=== PATIENT | female | born 1975 | race Caucasian/White ===

== ENCOUNTER → 2020-04-18 | Outpatient (REF) | LOC: M LAB 14:23 | PROVIDERS: ATTEND Nurse Practitioner Adult Health | DX: Z02.89 Encounter for other administrative examinations (principal) ==

== ENCOUNTER 2020-06-06 13:45 | Emergency (ER) | payer MEDICAID, SELFPAY ==
[~2020-06-06] VITALS: Ht 154.9 cm; Wt 103.6 kg
[2020-06-06] MEDS ORDERED: LEVO200T4 PO (13:55)
[2020-06-06] MEDS ORDERED: WELL100T2 PO (13:55)
[2020-06-06] MEDS ORDERED: ATOR40TA75 PO ×2 (13:55→19:03)
[2020-06-06] MEDS ORDERED: PANT40TA29 PO ×2 (13:55→19:03)
[2020-06-06] MEDS ORDERED: ZOLO100T PO (13:55)
[2020-06-06] MEDS ORDERED: NORCO, ANEXSIA 5/325MG TABLET (HYDROcodone/ACETAMINOPHEN) PO ONE (14:20)
[2020-06-06 14:50] LABS: BASO # 0.1 10^3/uL (0.0-0.2); BASO % 1.1 % (0.0-1.0); EOS # 0.3 10^3/uL (0.0-0.5); EOS % 3.2 % (0.0-3.0); HEMATOCRIT 37.1 % (36.0-47.0); HEMOGLOBIN 11.7 g/dl (12.0-15.5); LYMPH % 23.4 % (24.0-44.0); MEAN CORPUSCULAR HEMOGLOBIN 27.2 pg (27.0-33.0); MEAN CORPUSCULAR HGB CONC 31.5 g/dl (32.0-36.5); MEAN CORPUSCULAR VOLUME 86.3 fl (80.0-96.0); MONO # 0.4 10^3/uL (0.0-0.8); MONO % 4.8 % (2.0-8.0); NEUTROPHILS # 5.7 10^3/uL (1.5-8.5); NEUTROPHILS % 67.3 % (36.0-66.0); PLATELET COUNT, AUTOMATED 320 10^3/uL (150-450); WHITE BLOOD COUNT 8.5 10^3/uL (4.0-10.0)
[2020-06-06 15:30] LABS: ALBUMIN 4.1 GM/DL (3.2-5.2); ALT/SGPT 66 U/L (12-78); BILIRUBIN,TOTAL 0.5 MG/DL (0.2-1.0); BLOOD UREA NITROGEN 13 MG/DL (7-18); CALCIUM LEVEL 9.4 MG/DL (8.5-10.1); CARBON DIOXIDE LEVEL 32 MEQ/L (21-32); CHLORIDE LEVEL 101 MEQ/L (98-107); CK-MB VALUE MASS 16.3 NG/ML (<3.6); CORTISOL BASELINE 10.1 UG/DL (4.3-22.4); CPK CREATINE PHOSPHOKINASE 1933 U/L (26-192); CREATININE FOR GFR 1.48 MG/DL (0.55-1.30); FREE T3 < 0.5 PG/ML (2.2-4.0); FREE T4 0.21 NG/DL (0.76-1.46); GLOMERULAR FILTRATION RATE 40.6 (>58); GLUCOSE, FASTING 111 MG/DL (70-100); LIPASE 120 U/L (73-393); MB/CK RELATIVE INDEX 0.84 (< OR =4); NT-PRO BNP 46 PG/ML (<125); POTASSIUM SERUM 3.5 MEQ/L (3.5-5.1); SODIUM LEVEL 138 MEQ/L (136-145); TOTAL PROTEIN 7.6 GM/DL (6.4-8.2); TROPONIN I < 0.02 NG/ML (< 0.10)
--- NOTE | 2020-06-06 16:04 | REP ---
INDICATION: swelling/?chf. COMPARISON: None. TECHNIQUE: Upright PA and lateral chest. FINDINGS: The lung martin are clear. Cardiac size is normal. The izabel, mediastinum and skeletal structures are unremarkable. IMPRESSION: Essentially negative PA and lateral chest <Electronically signed by Adeel Morgan > 06/06/20 [id number]
[2020-06-06] MEDS ORDERED: NS 1,000 ML IV ONE (16:10)
[2020-06-06] MEDS ORDERED: LEVOTHYROXINE 100MCG TABLET (0.1MG) PO ONE (16:25)
[2020-06-06] MEDS ORDERED: SERT-141 PO (19:03)
[2020-06-06] MEDS ORDERED: BUPR1TAB52 PO (19:03)
[2020-06-06] MEDS ORDERED: LEVO100T5 PO (19:03)
[2020-06-06] MEDS ORDERED: BACT800T5 PO (19:03)
[2020-06-06 19:33] VITALS: BP 198/136
--- NOTE | 2020-06-06 21:14 | ECGEPIP ---
[facility] - ED Test Date: 2020-06-06 Pat Name: PATRICIA FRANCOIS Department: Room: - Gender: Female [employer]: LYSSA : 1975 Requested By: HARRIET CHILEL PA-C Order Number: [id number] Reading MD: Minor Kim Measurements Intervals [place] Rate: 76 P: 32 MD: 158 QRS: -32 QRSD: 82 T: 61 QT: 360 QTc: 405 Interpretive Statements Normal sinus rhythm Left axis deviation Nonspecific T wave abnormality NO PRIORS FOR COMPARISON Electronically Signed on 06-06-2020 21:14:20 EDT by Minor Kim
== END 2020-06-06 19:53 | disposition home or self-care (01) ==
LOC: M ED 13:45
DX: N39.0 Urinary tract infection, site not specified (principal); R00.2 Palpitations; E03.9 Hypothyroidism, unspecified; Z76.0 Encounter for issue of repeat prescription; R03.0 Elevated blood-pressure reading, without diagnosis of hypertension; Z79.899 Other long term (current) drug therapy; Z88.1 Allergy status to other antibiotic agents

== ENCOUNTER 2020-06-29 14:36 | Emergency (ER) | payer MEDICAID ==
[~2020-06-29] VITALS: Ht 154.9 cm; Wt 90.9 kg
[~2020-06-29 14:36] MED LIST: ATOR40TA75 PO; BACT800T5 PO; BUPR1TAB52 PO; LEVO100T5 PO; LEVO200T4 PO; PANT40TA29 PO; SERT-141 PO; WELL100T2 PO; ZOLO100T PO
[2020-06-29] MEDS ORDERED: methocarbamoL 750 MG TAB PO ONE (17:15)
[2020-06-29] MEDS ORDERED: ACETAMINOPHEN 325 MG TAB PO ONE (17:15)
[2020-06-29] MEDS ORDERED: LIDOCAINE 5% (LIDODERM) PATCH TD ONE (17:30)
[2020-06-29 17:51] VITALS: BP 158/70
[2020-06-30] MEDS ORDERED: **NOTE PATIENT COMMENT** MISC XX ONE (05:30)
[2020-07-01] MEDS ORDERED: LIDO5DIS41 TD (15:13)
[2020-07-01] MEDS ORDERED: METH-1164 PO (15:14)
== END 2020-06-29 17:57 | disposition home or self-care (01) ==
LOC: M ED 14:36
DX: G89.29 Other chronic pain (principal); M54.40 Lumbago with sciatica, unspecified side; E03.9 Hypothyroidism, unspecified; F41.9 Anxiety disorder, unspecified; F33.9 Major depressive disorder, recurrent, unspecified; K21.9 Gastro-esophageal reflux disease without esophagitis; I10 Essential (primary) hypertension; E78.5 Hyperlipidemia, unspecified; Z88.1 Allergy status to other antibiotic agents; Z79.890 Hormone replacement therapy; Z79.899 Other long term (current) drug therapy

== ENCOUNTER 2020-08-18 13:11 | Emergency (ER) | payer MEDICAID ==
[~2020-08-18] VITALS: Ht 154.9 cm; Wt 100.6 kg
[~2020-08-18 13:11] MED LIST changes: +LIDO5DIS41 TD; +METH-1164 PO
[2020-08-18 13:13] VITALS: BP 150/98
[2020-08-19] MEDS ORDERED: NEUR100C PO (18:06)
== END 2020-08-18 22:41 | disposition left against medical advice (07) ==
LOC: M ED 13:11
DX: Z53.21 Procedure and treatment not carried out due to patient leaving prior to being seen by health care provider (principal)

== ENCOUNTER 2020-08-19 12:47 | Emergency (ER) | payer MEDICAID, OTHER ==
[~2020-08-19] VITALS: Ht 154.9 cm; Wt 90.9 kg
[2020-08-19] MEDS ORDERED: MORPHINE 2 MG/ML 1ML VIAL (J2270) IV ONE (14:30)
[2020-08-19] MEDS ORDERED: NS 500 ML IV ONE (14:30)
[2020-08-19 14:47] LABS: BASO # 0.1 10^3/uL (0.0-0.2); EOS # 0.2 10^3/uL (0.0-0.5); EOS % 2.6 % (0.0-3.0); HEMATOCRIT 38.1 % (36.0-47.0); HEMOGLOBIN 11.8 g/dl (12.0-15.5); LYMPH % 23.3 % (24.0-44.0); MEAN CORPUSCULAR HEMOGLOBIN 27.8 pg (27.0-33.0); MEAN CORPUSCULAR VOLUME 89.6 fl (80.0-96.0); MONO # 0.4 10^3/uL (0.0-0.8); MONO % 4.7 % (2.0-8.0); NEUTROPHILS # 5.9 10^3/uL (1.5-8.5); NEUTROPHILS % 67.6 % (36.0-66.0); PLATELET COUNT, AUTOMATED 353 10^3/uL (150-450); RED BLOOD COUNT 4.25 10^6/uL (4.00-5.40); WHITE BLOOD COUNT 8.7 10^3/uL (4.0-10.0)
[2020-08-19 15:18] LABS: ALBUMIN 3.7 GM/DL (3.2-5.2); ALT/SGPT 47 U/L (12-78); BILIRUBIN,DIRECT < 0.1 MG/DL (0.0-0.2); BILIRUBIN,TOTAL 0.5 MG/DL (0.2-1.0); BLOOD UREA NITROGEN 10 MG/DL (7-18); CALCIUM LEVEL 8.5 MG/DL (8.5-10.1); CARBON DIOXIDE LEVEL 33 MEQ/L (21-32); CHLORIDE LEVEL 104 MEQ/L (98-107); GLOMERULAR FILTRATION RATE 51.7 (>58); GLUCOSE, FASTING 75 MG/DL (70-100); LIPASE 148 U/L (73-393); POTASSIUM SERUM 3.5 MEQ/L (3.5-5.1); SODIUM LEVEL 139 MEQ/L (136-145); TOTAL PROTEIN 7.6 GM/DL (6.4-8.2)
--- NOTE | 2020-08-19 15:18 | REP ---
INDICATION: back pain, right sided, urinary symptoms. COMPARISON: None. TECHNIQUE: Noncontrast enhanced stone protocol technique FINDINGS: The lung bases are clear. Limited evaluation of the solid intra-abdominal organs show no evidence of a gross abnormality. The maximal hepatic dimension is 24 cm diagonal with an 18 cm superior to inferior maximum. Surgical clips are seen in the gallbladder fossa from previous cholecystectomy. Limited evaluation of the pancreas, adrenal glands, and kidneys show no gross abnormalities. There is no nephroureterolithiasis, hydronephrosis, or hydroureter. There are no urinary bladder calcifications. Limited evaluation of the abdominal aorta and para-aortic regions show no gross abnormalities. There are bilateral pelvic phleboliths. Limited evaluation of the bowel loops and the mesenteries show no gross abnormalities. There is no free fluid or free air. Evaluation of the osseous structures shows chronic changes at L3-4 with disc space narrowing and endplate sclerosis along with endplate irregularity. IMPRESSION: There is no evidence of acute intra-abdominal or intrapelvic disease. Findings as described above. Consider contrast enhanced examination with IV and oral bowel preparatory contrast for follow-up if clinically relevant. <Electronically signed by Bradford Tamez > 08/19/20 [id number]
[2020-08-19] MEDS ORDERED: KETOROLAC 30 MG/ML 1ML VIAL IV ONE (17:05)
[2020-08-19] MEDS ORDERED: GABAPENTIN 100 MG CAP PO ONE (17:05)
[2020-08-19] MEDS ORDERED: NEUR100C PO (18:06)
[2020-08-19 18:17] VITALS: BP 162/96
== END 2020-08-19 18:55 | disposition home or self-care (01) ==
LOC: EDBD 12:47 → M ED 12:47
DX: M54.5 Low back pain (principal); G89.29 Other chronic pain; E03.9 Hypothyroidism, unspecified; I10 Essential (primary) hypertension; E78.5 Hyperlipidemia, unspecified
CPT/HCPCS: 36415; 74176; 80048; 80076; 81001; 83690; 85025; 93041; 96361; 96374; 96375; 99285; J1885; J2270

== ENCOUNTER → 2020-08-29 | Outpatient (CLI) | payer OTHER ==
[~2020-08-29] MED LIST changes: +NEUR100C PO
[2020-08-29 17:30] LABS: CHOLESTEROL LEVEL 380 MG/DL (<200); HDL CHOLESTEROL 37 MG/DL (>40); LDL CHOLESTEROL 268 MG/DL (<100); NON-HDL-C 343 MG/DL; TRIGLYCERIDES LEVEL 377 MG/DL (<150)
[2020-08-29 18:10] LABS: HIV 1&2 SCREEN CENTAUR NEGATIVE (NEGATIVE)
[2020-09-02 18:08] LABS: HEPATITIS C QUANTITATION HCV Not Detected IU/mL (.)
== END ==
LOC: M PLALAB 14:26
PROVIDERS: ATTEND Student in an Organized Health Care Education/Training Program
DX: Z13.9 Encounter for screening, unspecified (principal); E78.5 Hyperlipidemia, unspecified

== ENCOUNTER 2020-08-30 18:57 | Emergency (ER) | payer OTHER ==
[~2020-08-30] VITALS: Ht 154.9 cm; Wt 104.5 kg
--- NOTE | 2020-08-30 19:55 | REP ---
INDICATION: KNEE INJURY COMPARISON: None. TECHNIQUE: AP, lateral, bilateral oblique and sunrise views. FINDINGS: The osseous structures and joint spaces are intact and normal. There is no evidence for acute fracture or dislocation. No joint effusion is appreciated. Surrounding soft tissues are unremarkable. No subcutaneous emphysema or radiodense foreign body. IMPRESSION: No obvious acute fracture or dislocation. <Electronically signed by Willian Singleton > 08/30/201950
[2020-08-30] MEDS ORDERED: NORCO, ANEXSIA 5/325MG TABLET (HYDROcodone/ACETAMINOPHEN) PO ONE (21:10)
[2020-08-30 21:19] VITALS: BP 156/94
== END 2020-08-30 21:34 | disposition home or self-care (01) ==
LOC: M ED 21:12
DX: S89.92XA Unspecified injury of left lower leg, initial encounter (principal); Y04.8XXA Assault by other bodily force, initial encounter; Y92.019 Unspecified place in single-family (private) house as the place of occurrence of the external cause; Y93.9 Activity, unspecified; Y99.9 Unspecified external cause status; K21.9 Gastro-esophageal reflux disease without esophagitis; E03.9 Hypothyroidism, unspecified; E78.5 Hyperlipidemia, unspecified; F41.9 Anxiety disorder, unspecified; F33.9 Major depressive disorder, recurrent, unspecified; E66.9 Obesity, unspecified; Z88.1 Allergy status to other antibiotic agents; F17.200 Nicotine dependence, unspecified, uncomplicated; Z79.899 Other long term (current) drug therapy

== ENCOUNTER → 2020-09-27 | Outpatient (CLI) | payer OTHER ==
--- NOTE | 2020-09-27 14:01 | REPVR ---
PROCEDURE INFORMATION: Exam: MR Lumbar Spine Without Contrast Exam date and time: 09/27/2020 10:29 AM Age: 45 years old Clinical indication: Low back pain; Additional info: Ddd lumbar spine TECHNIQUE: Imaging protocol: Multiplanar magnetic resonance images of the lumbar spine without intravenous contrast. COMPARISON: CT ABD PELVIS W/O CONTRAST 08/19/2020 2:50 PM FINDINGS: Vertebrae: Evaluation of the marrow demonstrates no evidence of acute fracture line, high-grade compression deformity, or worrisome malalignment. Moderate posterior element hypertrophic changes at multiple levels. Loss of the lordosis suggests spasm. Increased T2 and diminished T1 signal along the endplates at L3-L4 probably secondary to Modic-type changes. Vertebral body heights and endplates are maintained relative to the prior CT. Small hemangioma in L4. The differential diagnosis would include edema in the vertebral bodies here. Benign marrow signal otherwise on the T1 weighted images. Spinal cord: The conus terminates at L1-L2 without abnormal cord signal. No epidural fluid or mass no evidence of arachnoiditis. L1-L2: No significant disc disease. No significant spinal canal stenosis. No neural foraminal stenosis. L2-L3: At L2-L3, there is mild bulging of the disc without significant mass effect. L3-L4: At L3-L4, there is more pronounced broad bulging of the disc with mild to moderate central stenosis along with moderate left and [id number] right foraminal encroachment. L4-L5: At L4-L5, mild broad-based bulging disc with superimposed tiny central protrusion. Mild central stenosis with mild bilateral foraminal encroachment. L5-S1: At L5-S1 I see no significant abnormality. Sacrum/coccyx: Symmetric SI joints. Soft tissues: Fatty stranding in the subcutaneous fat posteriorly along the length of the lumbar spine probably due to cellulitis. No formed fluid collection. Paraspinal muscular atrophy without paraspinal mass or hematoma. Disc desiccation at multiple levels with disc space loss most pronounced at L3-L4, as on the CT. No high signal in the disc to suggest an infectious process. Kidneys and ureters: No renal lesion. Other findings: No aortic aneurysm. IMPRESSION: 1. Degenerative changes without displaced fracture line. Likely Modic type changes in the endplates at L3-L4 rather than edema but if there is clinical evidence of an active infectious process and common and contrast-enhanced imaging is suggested. 2. No epidural fluid or mass. 3. Degenerative changes in bulging discs with mass effect most pronounced at L3-L4. 4. Question posterior cellulitis without defined fluid collection. Electronically signed by: Riaz Mcclellan On 09/27/2020 14:00:18 PM
== END ==
LOC: M RAD 09:34
PROVIDERS: ATTEND Orthopaedic Surgery
DX: M51.36 Other intervertebral disc degeneration, lumbar region (principal)

== ENCOUNTER 2020-10-31 06:23 | Emergency (ER) | payer OTHER ==
[~2020-10-31] VITALS: Ht 154.9 cm; Wt 90.9 kg
--- NOTE | 2020-10-31 08:29 | REPVR ---
PROCEDURE INFORMATION: Exam: CT Cervical Spine Without Contrast Exam date and time: 10/31/2020 6:47 AM Age: 45 years old Clinical indication: Injury or trauma; Fall; Blunt trauma; Additional info: Fall, pain with movement of neck TECHNIQUE: Imaging protocol: Computed tomography images of the cervical spine without contrast. Radiation optimization: All CT scans at this facility use at least one of these dose optimization techniques: automated exposure control; mA and/or kV adjustment per patient size (includes targeted exams where dose is matched to clinical indication); or iterative reconstruction. COMPARISON: CR Chest, 2 view PA, Lat 06/06/2020 3:46 PM FINDINGS: Bones/joints: Loss and slight reversal of cervical lordosis may be positional or associated with muscular spasm. Vertebral body heights are maintained. There is no fracture or dislocation. Facet joints appear well aligned. There are anterior osteophytes and posterior disc osteophyte complexes which are greatest asymmetric left C3-C4 and C5-C6 and C6-C7. There is likely mild range spinal canal narrowing at C5-C6 and C6-C7. There are uncinate and facet osteophytes which is causing severe left C3-C4, severe right C4-C5, and mild to moderate C6-C7 neural foraminal narrowing. Discs/Spinal canal/Neural foramina: See "Bones/joints" finding. Prevertebral Space: Prevertebral soft tissues appear normal. Lungs: Lung apices are unremarkable for acute finding. Soft tissues: Unremarkable. IMPRESSION: 1. Loss of cervical lordosis. No evidence of fracture or dislocation. 2. Degenerative changes as described Electronically signed by: Victoria Gonzalez On 10/31/2020 08:28:33 AM
--- NOTE | 2020-10-31 09:42 | REP ---
INDICATION: Left shoulder pain after fall COMPARISON: None. TECHNIQUE: Internal rotation, external rotation, and Y view. FINDINGS: No acute fracture or dislocation. The acromioclavicular and glenohumeral joints are intact. No periarticular calcifications or degenerative changes are appreciated. Sub acromial space is normal. Surrounding soft tissues are unremarkable. IMPRESSION: Normal left shoulder radiographs. No acute fracture or dislocation. <Electronically signed by Willian Singleton > 10/31/20 [id number]
--- NOTE | 2020-10-31 09:43 | REP ---
INDICATION: Left knee pain after fall. COMPARISON: None. TECHNIQUE: AP and lateral views of the left hip are provided. FINDINGS: The left proximal femur is intact. No fracture or subluxation is seen. Hip joint space is preserved. Periarticular soft tissues are unremarkable. The visualized portions of the left hemipelvis are intact. IMPRESSION: No fracture seen. Negative left hip radiographs. <Electronically signed by Ilan Haney > 10/31/20 0941
--- NOTE | 2020-10-31 09:44 | REP ---
INDICATION: Left knee pain after fall COMPARISON: None. TECHNIQUE: AP, lateral, bilateral oblique views. FINDINGS: The osseous structures and joint spaces are intact and normal. There is no evidence for acute fracture or dislocation. No joint effusion is appreciated. Surrounding soft tissues are unremarkable. No subcutaneous emphysema or radiodense foreign body. IMPRESSION: Normal examination. No acute fracture or dislocation. <Electronically signed by Willian Singleton > 10/31/20 0905
[2020-10-31 10:14] VITALS: BP 141/86
== END 2020-10-31 10:20 | disposition home or self-care (01) ==
LOC: M ED 06:23
DX: S16.1XXA Strain of muscle, fascia and tendon at neck level, initial encounter (principal); X58.XXXA Exposure to other specified factors, initial encounter; Y92.009 Unspecified place in unspecified non-institutional (private) residence as the place of occurrence of the external cause; Y93.89 Activity, other specified; Y99.8 Other external cause status; M25.562 Pain in left knee; M25.512 Pain in left shoulder; I10 Essential (primary) hypertension; K21.9 Gastro-esophageal reflux disease without esophagitis; Z79.899 Other long term (current) drug therapy; Z79.890 Hormone replacement therapy; Z88.0 Allergy status to penicillin; Z98.890 Other specified postprocedural states

== ENCOUNTER → 2020-11-10 | Outpatient (CLI) | payer OTHER ==
--- NOTE | 2020-11-10 09:25 | REP ---
INDICATION: PATELLA DISORDER OF LT KNEE. COMPARISON: 08/30/2020 TECHNIQUE: Three limited views FINDINGS: New calcific/os ossific radiodensities are seen just medial to the medial patellar facet and seen only on the sunrise view. Mild lateral patellar subluxation is also now evident on that same view. IMPRESSION: Findings involving the patella as described above. Has this patient recently succumbed to lateral patellar subluxation/dislocation? The finding is suspicious for a patellar avulsion fracture with or without medial patellar retinacular tear. <Electronically signed by Bradford Tamez > 11/10/20 [id number]
== END ==
LOC: M SOG 08:56
PROVIDERS: ATTEND Orthopaedic Surgery
DX: M22.8X2 Other disorders of patella, left knee (principal)

== ENCOUNTER 2021-03-23 11:17 | Emergency (ER) | payer OTHER ==
[~2021-03-23] VITALS: Ht 154.9 cm; Wt 95.8 kg
[2021-03-23 12:32] LABS: BASO # 0.1 10^3/uL (0.0-0.2); BASO % 1.4 % (0.0-1.0); EOS # 0.2 10^3/uL (0.0-0.5); EOS % 2.6 % (0.0-3.0); HEMATOCRIT 40.3 % (36.0-47.0); HEMOGLOBIN 12.9 g/dl (12.0-15.5); LYMPH # 2.3 10^3/uL (1.5-5.0); LYMPH % 26.8 % (24.0-44.0); MEAN CORPUSCULAR HEMOGLOBIN 28.2 pg (27.0-33.0); MEAN CORPUSCULAR VOLUME 88.2 fl (80.0-96.0); MONO # 0.4 10^3/uL (0.0-0.8); MONO % 4.9 % (2.0-8.0); NEUTROPHILS # 5.5 10^3/uL (1.5-8.5); PLATELET COUNT, AUTOMATED 270 10^3/uL (150-450); RED BLOOD COUNT 4.57 10^6/uL (4.00-5.40); WHITE BLOOD COUNT 8.6 10^3/uL (4.0-10.0)
[2021-03-23 13:17] LABS: HCG, SERUM QUALITATIVE NEGATIVE (NEGATIVE)
[2021-03-23 13:25] LABS: ALBUMIN 4.2 GM/DL (3.2-5.2); ALT/SGPT 34 U/L (12-78); BILIRUBIN,DIRECT < 0.1 MG/DL (0.0-0.2); BILIRUBIN,TOTAL 0.4 MG/DL (0.2-1.0); BLOOD UREA NITROGEN 17 MG/DL (7-18); CALCIUM LEVEL 9.7 MG/DL (8.5-10.1); CARBON DIOXIDE LEVEL 30 MEQ/L (21-32); CHLORIDE LEVEL 100 MEQ/L (98-107); CREATININE FOR GFR 1.44 MG/DL (0.55-1.30); GLOMERULAR FILTRATION RATE 41.7 (>58); GLUCOSE, FASTING 69 MG/DL (70-100); LIPASE 130 U/L (73-393); POTASSIUM SERUM 3.4 MEQ/L (3.5-5.1); SODIUM LEVEL 138 MEQ/L (136-145); TOTAL PROTEIN 7.9 GM/DL (6.4-8.2)
[2021-03-23 18:27] LABS: FREE THYROXINE INDEX 0.1 % (1.3-4.8); T UPTAKE 24 % (30-39); THYROXINE (T4) < 0.5 UG/DL (4.5-12.0)
[2021-03-23] MEDS ORDERED: SYNT150T PO (18:59)
[2021-03-23 19:23] VITALS: BP 145/98
== END 2021-03-23 19:24 | disposition home or self-care (01) ==
LOC: M ED 11:17
DX: R94.6 Abnormal results of thyroid function studies (principal); R60.9 Edema, unspecified; E78.5 Hyperlipidemia, unspecified; K21.9 Gastro-esophageal reflux disease without esophagitis; Z88.0 Allergy status to penicillin; Z79.899 Other long term (current) drug therapy

== ENCOUNTER → 2021-05-28 | Outpatient (CLI) | payer OTHER ==
[~2021-05-28] MED LIST changes: +SYNT150T PO
[2021-05-28 15:37] LABS: ALBUMIN 3.6 GM/DL (3.2-5.2); ALT/SGPT 39 U/L (12-78); BILIRUBIN,TOTAL 0.5 MG/DL (0.2-1.0); BLOOD UREA NITROGEN 15 MG/DL (7-18); CALCIUM LEVEL 8.6 MG/DL (8.5-10.1); CARBON DIOXIDE LEVEL 29 MEQ/L (21-32); CHLORIDE LEVEL 107 MEQ/L (98-107); CREATININE FOR GFR 0.98 MG/DL (0.55-1.30); GLOMERULAR FILTRATION RATE > 60.0 (>58); GLUCOSE, FASTING 70 MG/DL (70-100); HEPATITIS B SURFACE ANTIGEN NEGATIVE (NEGATIVE); POTASSIUM SERUM 4.4 MEQ/L (3.5-5.1); SODIUM LEVEL 142 MEQ/L (136-145); TOTAL PROTEIN 6.9 GM/DL (6.4-8.2)
== END ==
LOC: M PLALAB 10:26
PROVIDERS: ATTEND Student in an Organized Health Care Education/Training Program
DX: R89.9 Unspecified abnormal finding in specimens from other organs, systems and tissues (principal)

== ENCOUNTER 2021-07-07 22:46 | Emergency (ER) | payer OTHER ==
[~2021-07-07] VITALS: Ht 154.9 cm; Wt 97.3 kg
[2021-07-07] MEDS ORDERED: ACETAMINOPHEN 325 MG TAB PO ONE (23:05)
[2021-07-08] MEDS ORDERED: HOME MED LIST COMPLETE! XX SCH (03:45)
[2021-07-08] MEDS ORDERED: ZOLO100T PO (03:45)
[2021-07-08] MEDS ORDERED: EXCETAB32 PO (03:45)
[2021-07-08] MEDS ORDERED: PANT40TA29 PO (03:45)
[2021-07-08] MEDS ORDERED: WELL100T2 PO (03:45)
[2021-07-08] MEDS ORDERED: SYNT150T PO (03:45)
[2021-07-08 04:31] VITALS: BP 129/71
[2021-07-08] MEDS ORDERED: NIRMATRELVIR/RITONAVIR (RENAL) CO-PACK (EUA) PO SCH ×2 (09:00)
== END 2021-07-08 04:33 | disposition home or self-care (01) ==
LOC: M ED 22:46
DX: U07.1 COVID-19 (principal); E03.9 Hypothyroidism, unspecified; I10 Essential (primary) hypertension; E78.5 Hyperlipidemia, unspecified; Z88.1 Allergy status to other antibiotic agents; Z79.899 Other long term (current) drug therapy; Z79.890 Hormone replacement therapy

== ENCOUNTER 2021-09-27 10:39 | Emergency (ER) | payer OTHER ==
[~2021-09-27] VITALS: Ht 154.9 cm; Wt 98.3 kg
[2021-09-27 10:39] VITALS: BP 141/92
[~2021-09-27 10:39] MED LIST changes: +EXCETAB32 PO
[2021-09-27] MEDS ORDERED: KETOROLAC 60MG 2ML VIAL IM ONE (12:30)
[2021-09-27] MEDS ORDERED: KETO10TAB PO (12:34)
[2021-09-27] MEDS ORDERED: NEUR300C PO (12:34)
[2021-09-27] MEDS ORDERED: METH-1165 PO (12:34)
[2021-09-27] MEDS ORDERED: LIDO5DIS41 TD (12:34)
== END 2021-09-27 13:13 | disposition home or self-care (01) ==
LOC: M ED 10:39
DX: M54.32 Sciatica, left side (principal); I10 Essential (primary) hypertension; E78.5 Hyperlipidemia, unspecified; K21.9 Gastro-esophageal reflux disease without esophagitis; F17.200 Nicotine dependence, unspecified, uncomplicated; Z88.1 Allergy status to other antibiotic agents; Z79.899 Other long term (current) drug therapy

== ENCOUNTER 2021-11-15 19:16 | Emergency (ER) | payer OTHER ==
[~2021-11-15] VITALS: Ht 154.9 cm; Wt 81.8 kg
[~2021-11-15 19:16] MED LIST changes: +KETO10TAB PO; +METH-1165 PO; +NEUR300C PO
[2021-11-15] MEDS ORDERED: CIPRODEX OTIC SUSP 7.5ML AD ONE (21:45)
[2021-11-15] MEDS ORDERED: IBUPROFEN 100MG 5ML SUSP UDC DYE FREE PO ONE (22:20)
[2021-11-15] MEDS ORDERED: CIPR7.5D5 AD (23:05)
[2021-11-15 23:12] VITALS: BP 133/75
== END 2021-11-15 23:22 | disposition home or self-care (01) ==
LOC: M ED 19:16
DX: H66.91 Otitis media, unspecified, right ear (principal); E78.5 Hyperlipidemia, unspecified; K21.9 Gastro-esophageal reflux disease without esophagitis; F41.9 Anxiety disorder, unspecified; F32.A Depression, unspecified; E03.9 Hypothyroidism, unspecified; Z88.1 Allergy status to other antibiotic agents; Z79.899 Other long term (current) drug therapy

== ENCOUNTER 2021-12-12 15:06 | Observation (INO) | payer OTHER ==
[~2021-12-12 15:06] MED LIST changes: +CIPR7.5D5 AD
[2021-12-12 15:55] LABS: BASO # 0.1 10^3/uL (0.0-0.2); BASO % 1.1 % (0.0-1.0); EOS # 0.1 10^3/uL (0.0-0.5); EOS % 2.7 % (0.0-3.0); HEMATOCRIT 34.2 % (36.0-47.0); LYMPH # 1.7 10^3/uL (1.5-5.0); LYMPH % 32.2 % (24.0-44.0); MEAN CORPUSCULAR HEMOGLOBIN 28.9 pg (27.0-33.0); MEAN CORPUSCULAR HGB CONC 32.2 g/dl (32.0-36.5); MEAN CORPUSCULAR VOLUME 89.8 fl (80.0-96.0); MONO # 0.4 10^3/uL (0.0-0.8); MONO % 6.6 % (2.0-8.0); NEUTROPHILS % 56.6 % (36.0-66.0); PLATELET COUNT, AUTOMATED 219 10^3/uL (150-450); RED BLOOD COUNT 3.81 10^6/uL (4.00-5.40); WHITE BLOOD COUNT 5.3 10^3/uL (4.0-10.0)
[2021-12-12 16:06] LABS: INR 0.88; PROTHROMBIN TIME 12.1 SECONDS (12.5-14.5)
[2021-12-12 16:07] LABS: PARTIAL THROMBOPLASTIN TIME 31.9 SECONDS (24.8-34.2)
[2021-12-12 16:30] LABS: CPK CREATINE PHOSPHOKINASE 976 U/L (26-192)
[2021-12-12 16:36] LABS: ALBUMIN 3.8 GM/DL (3.2-5.2); ALT/SGPT 58 U/L (12-78); BILIRUBIN,DIRECT 0.1 MG/DL (0.0-0.2); BILIRUBIN,TOTAL 0.6 MG/DL (0.2-1.0); BLOOD UREA NITROGEN 14 MG/DL (7-18); CALCIUM LEVEL 8.4 MG/DL (8.5-10.1); CARBON DIOXIDE LEVEL 29 MEQ/L (21-32); CHLORIDE LEVEL 106 MEQ/L (98-107); CREATININE FOR GFR 1.38 MG/DL (0.55-1.30); FREE T4 0.15 NG/DL (0.76-1.46); GLOMERULAR FILTRATION RATE 43.8 (>58); GLUCOSE, FASTING 115 MG/DL (70-100); POTASSIUM SERUM 3.7 MEQ/L (3.5-5.1); SODIUM LEVEL 140 MEQ/L (136-145); TOTAL PROTEIN 7.4 GM/DL (6.4-8.2)
[2021-12-12] MEDS ORDERED: ISOVUE-370 76% 100ML VIAL As Ordered ONE (16:43)
[2021-12-12 18:14] LABS: CHOLESTEROL LEVEL 348 MG/DL (<200); HDL CHOLESTEROL 29 MG/DL (>40); NON-HDL-C 319 MG/DL; TRIGLYCERIDES LEVEL 754 MG/DL (<150)
[2021-12-12 18:18] LABS: HEMOGLOBIN A1c 5.7 %
[2021-12-12] MEDS ORDERED: GABA-282 PO (19:39)
[2021-12-12] MEDS ORDERED: MED REC COMMENT (19:39)
[2021-12-12] MEDS ORDERED: HOME MED LIST COMPLETE! XX SCH (19:40)
[2021-12-12] MEDS: LR 1,000 ML IV SCH ×2 (19:41→22:38)
[2021-12-12] MEDS: HYDROCORTISONE 100 MG/2 ML VIAL (J1720 PER 1) IV SCH (19:41)
[2021-12-12] MEDS ORDERED: LEVOTHYROXINE 100MCG (0.1MG) 5ML SDV PF (SOLUTION FORM) IV ONE (21:00)
[2021-12-12 22:14] VITALS: BP 132/62
[2021-12-13] VITALS: BP 169/103
[2021-12-13] MEDS: ACETAMINOPHEN TAB 650MG DOSE (2X325MG) PO PRN ×2 (00:38→08:41)
[2021-12-13] MEDS ORDERED: FIORICET TAB PO ONE (03:10)
[2021-12-13] MEDS: HYDROCORTISONE 100 MG/2 ML VIAL (J1720 PER 1) IV SCH (03:19)
[2021-12-13 04:00] VITALS: BP 174/102
[2021-12-13] MEDS ORDERED: amLODIPine 5 MG TAB PO ONE (04:25)
[2021-12-13] MEDS ORDERED: hydrALAZINE 20MG/ML 1ML VIAL (J0360 PER 20MG) IV ONE (06:05)
[2021-12-13 06:47] LABS: HEMATOCRIT 34.4 % (36.0-47.0); MEAN CORPUSCULAR HEMOGLOBIN 28.6 pg (27.0-33.0); MEAN CORPUSCULAR VOLUME 89.6 fl (80.0-96.0); PLATELET COUNT, AUTOMATED 206 10^3/uL (150-450); RED BLOOD COUNT 3.84 10^6/uL (4.00-5.40)
[2021-12-13] MEDS ORDERED: hydrALAZINE 20MG/ML 1ML VIAL (J0360 PER 20MG) IV STA (07:09)
[2021-12-13 07:28] LABS: ALBUMIN 3.6 GM/DL (3.2-5.2); BILIRUBIN,TOTAL 0.7 MG/DL (0.2-1.0); CALCIUM LEVEL 8.5 MG/DL (8.5-10.1); CREATININE FOR GFR 1.32 MG/DL (0.55-1.30); GLOMERULAR FILTRATION RATE 46.1 (>58); POTASSIUM SERUM 3.9 MEQ/L (3.5-5.1); TOTAL PROTEIN 7.2 GM/DL (6.4-8.2)
[2021-12-13 07:46] VITALS: BP 135/88
[2021-12-13 08:41] VITALS: BP 135/88
[2021-12-13] MEDS ORDERED: ENOXAPARIN 40MG/0.4ML SYRINGE (J1650 PER 10MG) SC SCH (09:00)
[2021-12-13] MEDS ORDERED: PANTOPRAZOLE 40MG TAB (PROTONIX) PO SCH (09:00)
[2021-12-13] MEDS ORDERED: buPROPion (WELLBUTRIN SR) 100 MG SR TAB PO SCH (09:00)
[2021-12-13] MEDS ORDERED: OMEGA-3 1000MG CAPSULE PO SCH (09:00)
[2021-12-13] MEDS ORDERED: ASPIRIN 81MG ENTERIC TABLET PO SCH (09:00)
[2021-12-13] MEDS ORDERED: GABAPENTIN 300 MG CAP PO SCH (09:00)
[2021-12-13] MEDS ORDERED: ATORVASTATIN 20 MG TAB PO SCH (09:00)
[2021-12-13] MEDS ORDERED: SERTRALINE 100 MG TAB PO SCH (09:00)
[2021-12-13] MEDS ORDERED: amLODIPine 5 MG TAB PO SCH (09:00)
[2021-12-13] MEDS ORDERED: ATOR80TA59 PO (10:20)
[2021-12-13] MEDS ORDERED: SYNT150T PO (10:20)
[2021-12-13] MEDS ORDERED: GABA-282 PO (10:20)
[2021-12-13] MEDS ORDERED: PANT40TA29 PO (10:20)
[2021-12-13] MEDS ORDERED: WELL100T2 PO (10:20)
[2021-12-13] MEDS ORDERED: ECOT81TA5 PO (10:20)
[2021-12-13] MEDS ORDERED: ZOLO100T PO (10:20)
[2021-12-13] MEDS ORDERED: OMEG1CAP85 PO (10:20)
[2021-12-13] MEDS ORDERED: PERCOCET 5MG/325MG TAB PO ONE (10:55)
[2021-12-13] MEDS ORDERED: AMLO1TAB24 PO (12:40)
[2021-12-14] MEDS ORDERED: LEVOTHYROXINE 150MCG TABLET (0.15MG) PO SCH (08:00)
[2021-12-15] MEDS ORDERED: CEFD300CAP PO (14:19)
== END 2021-12-13 13:27 | disposition home or self-care (01) ==
LOC: M ED 15:06 → M ED INP 15:07 → M PCU 17:17
PROVIDERS: ADMIT Internal Medicine; ATTEND Internal Medicine
DX: E03.9 Hypothyroidism, unspecified (principal); I10 Essential (primary) hypertension; N17.9 Acute kidney failure, unspecified; R79.89 Other specified abnormal findings of blood chemistry; E78.2 Mixed hyperlipidemia; K21.9 Gastro-esophageal reflux disease without esophagitis; F32.A Depression, unspecified; K59.00 Constipation, unspecified; Z79.899 Other long term (current) drug therapy; Z79.82 Long term (current) use of aspirin; Z88.0 Allergy status to penicillin
CPT/HCPCS: 36415; 70450; 70496; 70498; 70551; 71045; 76775; 80048; 80053; 80061; 80076; 81000; 81015; 82533; 82550; 83036; 84439; 84443; 85025; 85027; 85610; 85730; 87040; 87088; 87186; 87486; 87581; 87633; 87798; 93005; 93041; 93970; 94760; 96361; 96372; 96374; 96375; 96376; 99285; J0360; J1650; J1720; Q9967

== ENCOUNTER → 2021-12-30 | Outpatient (CLI) | payer OTHER ==
[~2021-12-30] MED LIST changes: +AMLO1TAB24 PO; +ATOR80TA59 PO; +CEFD300CAP PO; +ECOT81TA5 PO; +GABA-282 PO; +MED REC COMMENT; +OMEG1CAP85 PO
[2021-12-30 15:25] LABS: CALCIUM LEVEL 8.6 MG/DL (8.5-10.1); CHOLESTEROL RISK RATIO 6.74 (<5); CREATININE FOR GFR 1.11 MG/DL (0.55-1.30); FREE T4 0.86 NG/DL (0.76-1.46); GLOMERULAR FILTRATION RATE 56.3 (>58); POTASSIUM SERUM 4.1 MEQ/L (3.5-5.1); THYROID STIMULATING HORMONE 15.4 uIU/ML (0.358-3.740)
== END ==
LOC: M PLALAB 09:49
PROVIDERS: ATTEND Student in an Organized Health Care Education/Training Program
DX: N17.9 Acute kidney failure, unspecified (principal); E03.9 Hypothyroidism, unspecified; E78.5 Hyperlipidemia, unspecified; Z79.890 Hormone replacement therapy

== ENCOUNTER 2022-01-18 12:05 | Emergency (ER) | payer OTHER ==
[~2022-01-18] VITALS: Ht 154.9 cm; Wt 99.8 kg
[2022-01-18] MEDS ORDERED: NORCO, ANEXSIA 5/325MG TABLET (HYDROcodone/ACETAMINOPHEN) PO ONE (13:40)
[2022-01-18] MEDS ORDERED: HYDR-3713 PO (14:04)
[2022-01-18 14:15] VITALS: BP 152/86
== END 2022-01-18 14:22 | disposition home or self-care (01) ==
LOC: M ED 12:05
DX: S93.601A Unspecified sprain of right foot, initial encounter (principal); W01.0XXA Fall on same level from slipping, tripping and stumbling without subsequent striking against object, initial encounter; Y92.512 Supermarket, store or market as the place of occurrence of the external cause; I10 Essential (primary) hypertension; E78.5 Hyperlipidemia, unspecified; E03.9 Hypothyroidism, unspecified; K21.9 Gastro-esophageal reflux disease without esophagitis; F41.9 Anxiety disorder, unspecified; F32.A Depression, unspecified; Z88.1 Allergy status to other antibiotic agents; Z79.890 Hormone replacement therapy; Z79.899 Other long term (current) drug therapy

== ENCOUNTER 2022-02-07 19:22 | Emergency (ER) | payer OTHER ==
[~2022-02-07] VITALS: Ht 154.9 cm; Wt 90.9 kg
[2022-02-07 19:22] VITALS: BP 126/85
[~2022-02-07 19:22] MED LIST changes: +HYDR-3713 PO
== END 2022-02-07 23:19 | disposition left against medical advice (07) ==
LOC: M ED 19:22
DX: Z53.21 Procedure and treatment not carried out due to patient leaving prior to being seen by health care provider (principal)

== ENCOUNTER 2022-02-08 09:10 | Emergency (ER) | payer OTHER ==
[~2022-02-08] VITALS: Ht 154.9 cm; Wt 98.5 kg
[2022-02-08 09:10] VITALS: BP 136/80
== END 2022-02-08 11:59 | disposition home or self-care (01) ==
LOC: M ED 09:10
DX: S80.912A Unspecified superficial injury of left knee, initial encounter (principal); M25.462 Effusion, left knee; W01.0XXA Fall on same level from slipping, tripping and stumbling without subsequent striking against object, initial encounter; Y92.9 Unspecified place or not applicable; Y93.89 Activity, other specified; Y99.0 Civilian activity done for income or pay; Z88.1 Allergy status to other antibiotic agents; Z79.891 Long term (current) use of opiate analgesic; Z79.82 Long term (current) use of aspirin; Z79.899 Other long term (current) drug therapy

== ENCOUNTER 2022-02-11 21:56 | Emergency (ER) | payer OTHER ==
[~2022-02-11] VITALS: Ht 154.9 cm; Wt 90.9 kg
[2022-02-11 21:57] VITALS: BP 157/77
[2022-02-12] MEDS ORDERED: KETOROLAC 60MG 2ML VIAL IM ONE (02:55)
[2022-02-12] MEDS ORDERED: ONDANSETRON 4MG ORAL DISINTEGRATING TAB PO ONE (03:00)
[2022-02-12 03:27] LABS: BASO % 0.4 % (0.0-1.0); EOS # 0.2 10^3/uL (0.0-0.5); EOS % 1.9 % (0.0-3.0); HEMATOCRIT 34.6 % (36.0-47.0); HEMOGLOBIN 10.8 g/dl (12.0-15.5); LYMPH % 10.2 % (24.0-44.0); MEAN CORPUSCULAR HEMOGLOBIN 27.3 pg (27.0-33.0); MEAN CORPUSCULAR HGB CONC 31.2 g/dl (32.0-36.5); MEAN CORPUSCULAR VOLUME 87.4 fl (80.0-96.0); MONO # 0.4 10^3/uL (0.0-0.8); NEUTROPHILS # 8.3 10^3/uL (1.5-8.5); NEUTROPHILS % 82.9 % (36.0-66.0); PLATELET COUNT, AUTOMATED 238 10^3/uL (150-450); RED BLOOD COUNT 3.96 10^6/uL (4.00-5.40)
[2022-02-12 03:51] LABS: ALBUMIN 3.3 G/DL (3.2-5.2); ALKALINE PHOSPHATASE 81 U/L (46-116); ALT/SGPT 28 U/L (7.0-40); AST/SGOT 32 U/L (<34); BILIRUBIN,TOTAL 0.6 MG/DL (0.3-1.2); BLOOD UREA NITROGEN 9 MG/DL (9-23); CALCIUM LEVEL 8.5 MG/DL (8.5-10.1); CARBON DIOXIDE LEVEL 28 MMOL/L (20-31); CHLORIDE LEVEL 104 MMOL/L (98-107); CREATININE FOR GFR 0.95 MG/DL (0.55-1.30); GLOMERULAR FILTRATION RATE > 60.0 (>58); GLUCOSE, FASTING 110 MG/DL (60-100); POTASSIUM SERUM 3.8 MMOL/L (3.5-5.1); SODIUM LEVEL 138 MMOL/L (136-145); TOTAL PROTEIN 6.8 G/DL (5.7-8.2)
[2022-02-12] MEDS ORDERED: ONDA4TAB6 PO (04:01)
== END 2022-02-12 04:14 | disposition home or self-care (01) ==
LOC: M ED 21:56
DX: U07.1 COVID-19 (principal); R10.9 Unspecified abdominal pain; I10 Essential (primary) hypertension; F32.A Depression, unspecified; E03.9 Hypothyroidism, unspecified; K21.9 Gastro-esophageal reflux disease without esophagitis; Z88.1 Allergy status to other antibiotic agents; Z79.82 Long term (current) use of aspirin; Z79.899 Other long term (current) drug therapy; Z79.890 Hormone replacement therapy
CPT/HCPCS: 80053; 85025; 87428; 87880; 96372; 99283; J1885

== ENCOUNTER 2022-02-23 14:57 | Outpatient (RCR) | payer OTHER ==
[~2022-02-23 14:57] MED LIST changes: +ONDA4TAB6 PO
== END 2022-02-27 ==
LOC: M PT 14:57
PROVIDERS: ATTEND Orthopaedic Surgery
DX: M23.304 Other meniscus derangements, unspecified medial meniscus, left knee (principal); M25.562 Pain in left knee; S83.015D Lateral dislocation of left patella, subsequent encounter; Z53.9 Procedure and treatment not carried out, unspecified reason

== ENCOUNTER → 2022-03-05 | Outpatient (CLI) | payer OTHER ==
[2022-03-05 14:30] LABS: BASO # 0.1 10^3/uL (0.0-0.2); BASO % 0.7 % (0.0-1.0); EOS # 0.3 10^3/uL (0.0-0.5); EOS % 3.3 % (0.0-3.0); HEMOGLOBIN 11.5 g/dl (12.0-15.5); LYMPH % 20.5 % (24.0-44.0); MEAN CORPUSCULAR HEMOGLOBIN 26.7 pg (27.0-33.0); MEAN CORPUSCULAR HGB CONC 30.3 g/dl (32.0-36.5); MEAN CORPUSCULAR VOLUME 88.4 fl (80.0-96.0); MONO # 0.6 10^3/uL (0.0-0.8); MONO % 5.9 % (2.0-8.0); NEUTROPHILS # 6.6 10^3/uL (1.5-8.5); NEUTROPHILS % 69.2 % (36.0-66.0); PLATELET COUNT, AUTOMATED 297 10^3/uL (150-450); WHITE BLOOD COUNT 9.6 10^3/uL (4.0-10.0)
[2022-03-05 14:55] LABS: CREATININE, URINE 105.6 MG/DL; MAU/CREAT RATIO 13.2 MCG/MG (0.0-30.0)
[2022-03-05 14:58] LABS: ALBUMIN 3.6 G/DL (3.2-5.2); ALKALINE PHOSPHATASE 77 U/L (46-116); ALT/SGPT 23 U/L (7.0-40); AST/SGOT 26 U/L (<34); BILIRUBIN,TOTAL 0.5 MG/DL (0.3-1.2); BLOOD UREA NITROGEN 14 MG/DL (9-23); CALCIUM LEVEL 8.8 MG/DL (8.5-10.1); CARBON DIOXIDE LEVEL 27 MMOL/L (20-31); CHLORIDE LEVEL 105 MMOL/L (98-107); CHOLESTEROL LEVEL 165 MG/DL (<200); CHOLESTEROL RISK RATIO 5.63 (<5); CREATININE FOR GFR 0.97 MG/DL (0.55-1.30); GLOMERULAR FILTRATION RATE > 60.0 (>58); GLUCOSE, FASTING 74 MG/DL (60-100); HDL CHOLESTEROL 29.3 MG/DL (>40); LDL CHOLESTEROL 89.7 MG/DL (<100); NON-HDL-C 136 MG/DL; POTASSIUM SERUM 4.7 MMOL/L (3.5-5.1); SODIUM LEVEL 142 MMOL/L (136-145); TOTAL PROTEIN 6.9 G/DL (5.7-8.2); TRIGLYCERIDES LEVEL 230 MG/DL (<150)
[2022-03-05 14:59] LABS: FREE T4 0.84 NG/DL (0.89-1.76); THYROID STIMULATING HORMONE 11.509 uIU/ML (0.55-4.78)
[2022-03-05 15:20] LABS: HEMOGLOBIN A1c 5.3 % (4.0-6.0)
== END ==
LOC: M PLALAB 11:15
PROVIDERS: ATTEND Student in an Organized Health Care Education/Training Program
DX: I10 Essential (primary) hypertension (principal); Z13.1 Encounter for screening for diabetes mellitus; R79.89 Other specified abnormal findings of blood chemistry; E78.5 Hyperlipidemia, unspecified

== ENCOUNTER 2022-03-24 13:35 | Outpatient (RCR) | payer OTHER | END 2022-03-30 | LOC: M PT 13:35 | PROVIDERS: ATTEND Orthopaedic Surgery | DX: M23.304 Other meniscus derangements, unspecified medial meniscus, left knee (principal); M25.562 Pain in left knee; S83.015D Lateral dislocation of left patella, subsequent encounter ==

== ENCOUNTER 2022-04-01 20:19 | Emergency (ER) | payer OTHER ==
[~2022-04-01] VITALS: Ht 154.9 cm; Wt 90.9 kg
[2022-04-01 20:20] VITALS: BP 139/90
== END 2022-04-01 22:26 | disposition left against medical advice (07) ==
LOC: M ED 20:19
DX: Z53.21 Procedure and treatment not carried out due to patient leaving prior to being seen by health care provider (principal)

== ENCOUNTER 2022-04-19 02:59 | Emergency (ER) | payer OTHER, SELFPAY ==
[~2022-04-19] VITALS: Ht 154.9 cm; Wt 104.3 kg
[2022-04-19 03:03] VITALS: BP 141/97
== END 2022-04-19 07:00 | disposition left against medical advice (07) ==
LOC: M ED 02:59
DX: Z53.21 Procedure and treatment not carried out due to patient leaving prior to being seen by health care provider (principal)

== ENCOUNTER → 2022-04-21 | Outpatient (REF) | payer OTHER | LOC: M SFHCPLAZ 10:38 | PROVIDERS: ATTEND Family Medicine | DX: Z53.9 Procedure and treatment not carried out, unspecified reason (principal) ==

== ENCOUNTER 2022-04-26 14:24 | Emergency (ER) | payer OTHER ==
[~2022-04-26] VITALS: Ht 154.9 cm; Wt 101.0 kg
[2022-04-26 15:36] LABS: BASO % 0.2 % (0.0-1.0); EOS # 0.2 10^3/uL (0.0-0.5); EOS % 1.3 % (0.0-3.0); HEMOGLOBIN 11.2 g/dl (12.0-15.5); LYMPH # 0.4 10^3/uL (1.5-5.0); LYMPH % 3.9 % (24.0-44.0); MEAN CORPUSCULAR HEMOGLOBIN 24.9 pg (27.0-33.0); MEAN CORPUSCULAR HGB CONC 30.3 g/dl (32.0-36.5); MEAN CORPUSCULAR VOLUME 82.4 fl (80.0-96.0); MONO # 0.2 10^3/uL (0.0-0.8); MONO % 2.1 % (2.0-8.0); NEUTROPHILS # 10.2 10^3/uL (1.5-8.5); PLATELET COUNT, AUTOMATED 266 10^3/uL (150-450); RED BLOOD COUNT 4.49 10^6/uL (4.00-5.40); WHITE BLOOD COUNT 11.1 10^3/uL (4.0-10.0)
[2022-04-26 16:00] LABS: LIPASE 33 U/L (12-53)
[2022-04-26] MEDS ORDERED: NS 3,030 ML in IV 1 EA IV ONE (16:10)
[2022-04-26] MEDS ORDERED: ACETAMINOPHEN 1000MG 100ML IV BAG IV ONE (16:10)
[2022-04-26] MEDS ORDERED: ONDANSETRON 4MG 2ML VIAL IV ONE (16:10)
[2022-04-26 16:17] LABS: ALBUMIN 3.8 G/DL (3.2-5.2); ALKALINE PHOSPHATASE 80 U/L (46-116); ALT/SGPT 58 U/L (7.0-40); AST/SGOT 42 U/L (<34); BILIRUBIN,DIRECT 0.3 MG/DL (<0.4); BILIRUBIN,TOTAL 1.2 MG/DL (0.3-1.2); BLOOD UREA NITROGEN 18 MG/DL (9-23); CALCIUM LEVEL 8.4 MG/DL (8.5-10.1); CARBON DIOXIDE LEVEL 27 MMOL/L (20-31); CHLORIDE LEVEL 103 MMOL/L (98-107); CREATININE FOR GFR 0.99 MG/DL (0.55-1.30); GLOMERULAR FILTRATION RATE > 60.0 (>58); GLUCOSE, FASTING 115 MG/DL (60-100); POTASSIUM SERUM 4.2 MMOL/L (3.5-5.1); SODIUM LEVEL 137 MMOL/L (136-145)
[2022-04-26 16:18] LABS: RSV AMPLIFICATION NEGATIVE (NEGATIVE)
[2022-04-26] MEDS ORDERED: ISOVUE-370 76% 100ML VIAL As Ordered ONE (16:36)
[2022-04-26 17:10] LABS: TOTAL PROTEIN 7.3 G/DL (5.7-8.2)
[2022-04-26] MEDS ORDERED: ONDA4TAB6 PO (19:46)
[2022-04-26 20:12] VITALS: BP 137/76
== END 2022-04-26 20:25 | disposition home or self-care (01) ==
LOC: M ED 14:24
DX: J12.9 Viral pneumonia, unspecified (principal); J20.9 Acute bronchitis, unspecified; K52.9 Noninfective gastroenteritis and colitis, unspecified; R16.0 Hepatomegaly, not elsewhere classified; K21.9 Gastro-esophageal reflux disease without esophagitis; I10 Essential (primary) hypertension; E03.9 Hypothyroidism, unspecified; F41.9 Anxiety disorder, unspecified; F32.A Depression, unspecified; M54.50 Low back pain, unspecified; Z88.1 Allergy status to other antibiotic agents; Z88.8 Allergy status to other drugs, medicaments and biological substances; Z79.02 Long term (current) use of antithrombotics/antiplatelets; Z79.82 Long term (current) use of aspirin; Z79.83 Long term (current) use of bisphosphonates; Z79.52 Long term (current) use of systemic steroids; Z79.899 Other long term (current) drug therapy
CPT/HCPCS: 71046; 74177; 80048; 80076; 81001; 83605; 83690; 85025; 87486; 87581; 87631; 87633; 87798; 96361; 96374; 96375; 99284; J0131; J2405; Q9967

== ENCOUNTER → 2022-04-28 | Outpatient (CLI) | payer OTHER ==
[2022-04-28 14:14] LABS: AMORPHOUS SEDIMENT MODERATE (NEGATIVE); APPEARANCE, URINE HAZY (CLEAR); BACTERIA, URINE AUTO NEGATIVE (NEGATIVE); BILIRUBIN, URINE AUTO NEGATIVE (NEGATIVE); BLOOD, URINE BLOOD NEGATIVE (NEGATIVE); COLOR, URINE YELLOW (YELLOW); GLUCOSE, URINE (UA) AUTO NEGATIVE (NEGATIVE); KETONE, URINE AUTO NEGATIVE (NEGATIVE); LEUKOCYTE ESTERASE, URINE AUTO TRACE (NEGATIVE); NITRITE, URINE AUTO NEGATIVE (NEGATIVE); PROTEIN, URINE AUTO NEGATIVE (NEGATIVE); RBC, URINE AUTO 1 /HPF (0-3); SPECIFIC GRAVITY URINE AUTO 1.006 (1.002-1.035); SQUAMOUS EPITHELIAL CELL UR AU 15 /HPF (0-6); WBC, URINE AUTO 5 /HPF (0-3)
[2022-04-28 14:20] LABS: BASO % 0.6 % (0.0-1.0); EOS # 0.2 10^3/uL (0.0-0.5); EOS % 2.8 % (0.0-3.0); HEMATOCRIT 34.2 % (36.0-47.0); LYMPH # 1.5 10^3/uL (1.5-5.0); MEAN CORPUSCULAR HEMOGLOBIN 24.5 pg (27.0-33.0); MEAN CORPUSCULAR HGB CONC 29.2 g/dl (32.0-36.5); MEAN CORPUSCULAR VOLUME 83.8 fl (80.0-96.0); MONO # 0.6 10^3/uL (0.0-0.8); NEUTROPHILS # 3.9 10^3/uL (1.5-8.5); NEUTROPHILS % 61.9 % (36.0-66.0); PLATELET COUNT, AUTOMATED 237 10^3/uL (150-450); RED BLOOD COUNT 4.08 10^6/uL (4.00-5.40); WHITE BLOOD COUNT 6.3 10^3/uL (4.0-10.0)
[2022-04-28 14:32] LABS: HEPATITIS B SURFACE ANTIGEN NEGATIVE (NEGATIVE)
[2022-04-28 14:53] LABS: HEPATITIS B CORE ANTIBODY IGM NEGATIVE (NEGATIVE); HEPATITIS C VIRUS ABY INDEX 0.1 INDEX (<0.8)
[2022-04-28 14:59] LABS: ALBUMIN 3.2 G/DL (3.2-5.2); ALKALINE PHOSPHATASE 73 U/L (46-116); ALT/SGPT 71 U/L (7.0-40); AST/SGOT 47 U/L (<34); BILIRUBIN,DIRECT 0.3 MG/DL (<0.4); BILIRUBIN,TOTAL 0.8 MG/DL (0.3-1.2); BLOOD UREA NITROGEN 10 MG/DL (9-23); CALCIUM LEVEL 8.6 MG/DL (8.5-10.1); CARBON DIOXIDE LEVEL 30 MMOL/L (20-31); CHLORIDE LEVEL 108 MMOL/L (98-107); CREATININE FOR GFR 0.99 MG/DL (0.55-1.30); GLOMERULAR FILTRATION RATE > 60.0 (>58); GLUCOSE, FASTING 102 MG/DL (60-100); POTASSIUM SERUM 4.3 MMOL/L (3.5-5.1); SODIUM LEVEL 142 MMOL/L (136-145); THYROID STIMULATING HORMONE 8.866 uIU/ML (0.55-4.78); TOTAL PROTEIN 6.4 G/DL (5.7-8.2)
== END ==
LOC: M PLALAB 09:35
PROVIDERS: ATTEND Student in an Organized Health Care Education/Training Program
DX: K76.0 Fatty (change of) liver, not elsewhere classified (principal); D72.829 Elevated white blood cell count, unspecified; R10.9 Unspecified abdominal pain; Z13.29 Encounter for screening for other suspected endocrine disorder

== ENCOUNTER → 2022-04-28 | Outpatient (REF) | payer OTHER | LOC: M SFHCPLAZ 09:06 | PROVIDERS: ATTEND Family Medicine | DX: Z53.9 Procedure and treatment not carried out, unspecified reason (principal) ==

== ENCOUNTER → 2022-05-07 | Outpatient (CLI) | payer OTHER ==
[2022-05-07 17:45] LABS: FERRITIN 7.8 NG/ML (7.3-270.7)
[2022-05-07 17:46] LABS: FOLATE 11.5 NG/ML (>5.4); PERCENT SATURATION 8.5 % (13.2-45.0)
== END ==
LOC: M PLALAB 15:17
PROVIDERS: ATTEND Student in an Organized Health Care Education/Training Program
DX: R74.8 Abnormal levels of other serum enzymes (principal)

== ENCOUNTER → 2022-05-18 | Outpatient (CLI) | payer OTHER | LOC: M RAD 06:42 | PROVIDERS: ATTEND Student in an Organized Health Care Education/Training Program | DX: K76.0 Fatty (change of) liver, not elsewhere classified (principal) ==

== ENCOUNTER → 2022-05-18 | Outpatient (CLI) | payer OTHER | LOC: M PLAIMG 14:50 | PROVIDERS: ATTEND Orthopaedic Surgery | DX: M23.304 Other meniscus derangements, unspecified medial meniscus, left knee (principal) ==

== ENCOUNTER → 2022-05-21 | Outpatient (CLI) | payer OTHER ==
[~2022-05-21] MED LIST changes: +LOSA50TA28 PO
== END ==
LOC: M LABSMTC 07:38
PROVIDERS: ATTEND Anesthesiology
DX: Z01.812 Encounter for preprocedural laboratory examination (principal)

== ENCOUNTER 2022-05-26 07:11 | Day surgery (SDC) | payer OTHER ==
[~2022-05-26] VITALS: Ht 154.9 cm; Wt 102.5 kg
[~2022-05-26 07:11] MED LIST changes: +NS 1,000 ML IV ONE
[2022-05-26 09:02] VITALS: BP 129/77
== END 2022-05-26 09:03 | disposition home or self-care (01) ==
LOC: M SDC 07:11
PROVIDERS: ATTEND Surgery
DX: Z12.11 Encounter for screening for malignant neoplasm of colon (principal); D12.4 Benign neoplasm of descending colon; D12.5 Benign neoplasm of sigmoid colon; K64.0 First degree hemorrhoids; K22.89 Other specified disease of esophagus; K31.7 Polyp of stomach and duodenum; K29.70 Gastritis, unspecified, without bleeding; K31.A11 Gastric intestinal metaplasia without dysplasia, involving the antrum; K74.60 Unspecified cirrhosis of liver; F17.200 Nicotine dependence, unspecified, uncomplicated; Z79.02 Long term (current) use of antithrombotics/antiplatelets; Z79.82 Long term (current) use of aspirin; Z79.890 Hormone replacement therapy; Z79.899 Other long term (current) drug therapy; Z88.1 Allergy status to other antibiotic agents; Z88.8 Allergy status to other drugs, medicaments and biological substances; Z80.1 Family history of malignant neoplasm of trachea, bronchus and lung

== ENCOUNTER 2022-07-14 13:51 | Emergency (ER) | payer OTHER ==
[~2022-07-14] VITALS: Ht 154.9 cm; Wt 105.3 kg
[~2022-07-14 13:51] MED LIST changes: -NS 1,000 ML IV ONE
[2022-07-14] MEDS ORDERED: ACETAMINOPHEN TAB 650MG DOSE (2X325MG) PO ONE (17:00)
[2022-07-14] MEDS ORDERED: KETOROLAC 30 MG/ML 1ML VIAL IV ONE (18:10)
[2022-07-14 18:30] VITALS: BP 160/108
== END 2022-07-14 18:43 | disposition home or self-care (01) ==
LOC: M ED 13:51
DX: S83.92XA Sprain of unspecified site of left knee, initial encounter (principal); E78.5 Hyperlipidemia, unspecified; E03.9 Hypothyroidism, unspecified; I10 Essential (primary) hypertension; F17.200 Nicotine dependence, unspecified, uncomplicated; Z88.1 Allergy status to other antibiotic agents; Z88.8 Allergy status to other drugs, medicaments and biological substances; Z79.811 Long term (current) use of aromatase inhibitors; Z79.899 Other long term (current) drug therapy
CPT/HCPCS: 96374; 99283; J1885

== ENCOUNTER → 2022-08-18 | Outpatient (CLI) | payer OTHER | LOC: M SLEEP HO 11:31 | PROVIDERS: ATTEND Student in an Organized Health Care Education/Training Program | DX: G47.8 Other sleep disorders (principal) ==

== ENCOUNTER 2022-09-08 13:55 | Emergency (ER) | payer OTHER ==
[~2022-09-08] VITALS: Ht 154.9 cm; Wt 103.9 kg
[2022-09-08 13:57] VITALS: BP 161/92; TEMP 97.4; O2SAT 98
[2022-09-08 15:10] LABS: RSV AMPLIFICATION NEGATIVE (NEGATIVE)
== END 2022-09-08 17:48 | disposition left against medical advice (07) ==
LOC: M ED 13:55
DX: Z53.21 Procedure and treatment not carried out due to patient leaving prior to being seen by health care provider (principal)

== ENCOUNTER → 2022-11-05 | Outpatient (REF) | payer OTHER | LOC: M SFHCPLAZ 12:10 | PROVIDERS: ATTEND Family Medicine | DX: Z53.9 Procedure and treatment not carried out, unspecified reason (principal) ==

== ENCOUNTER → 2022-12-07 | Outpatient (CLI) | payer OTHER ==
[2022-12-07 13:50] LABS: APPEARANCE, URINE HAZY (CLEAR); BACTERIA, URINE AUTO 1+ (NEGATIVE); BILIRUBIN, URINE AUTO NEGATIVE (NEGATIVE); BLOOD, URINE BLOOD NEGATIVE (NEGATIVE); COLOR, URINE YELLOW (YELLOW); GLUCOSE, URINE (UA) AUTO NEGATIVE (NEGATIVE); KETONE, URINE AUTO NEGATIVE (NEGATIVE); LEUKOCYTE ESTERASE, URINE AUTO NEGATIVE (NEGATIVE); MUCUS, URINE SMALL (NEGATIVE); NITRITE, URINE AUTO NEGATIVE (NEGATIVE); PROTEIN, URINE AUTO NEGATIVE (NEGATIVE); RBC, URINE AUTO 2 /HPF (0-3); SPECIFIC GRAVITY URINE AUTO 1.015 (1.002-1.035); SQUAMOUS EPITHELIAL CELL UR AU 8 /HPF (0-6); UROBILINOGEN, URINE AUTO 0.2 mg/dL (0.0-2.0); WBC, URINE AUTO 6 /HPF (0-3)
[2022-12-07 13:55] LABS: BASO # 0.1 10^3/uL (0.0-0.2); EOS # 0.2 10^3/uL (0.0-0.5); EOS % 2.6 % (0.0-3.0); HEMATOCRIT 37.9 % (36.0-47.0); HEMOGLOBIN 11.9 g/dl (12.0-15.5); LYMPH # 2.1 10^3/uL (1.5-5.0); LYMPH % 23.4 % (24.0-44.0); MEAN CORPUSCULAR HEMOGLOBIN 28.3 pg (27.0-33.0); MEAN CORPUSCULAR HGB CONC 31.4 g/dl (32.0-36.5); MEAN CORPUSCULAR VOLUME 90.2 fl (80.0-96.0); MONO # 0.5 10^3/uL (0.0-0.8); MONO % 5.5 % (2.0-8.0); NEUTROPHILS # 5.9 10^3/uL (1.5-8.5); PLATELET COUNT, AUTOMATED 261 10^3/uL (150-450); WHITE BLOOD COUNT 8.9 10^3/uL (4.0-10.0)
[2022-12-07 13:56] LABS: ALBUMIN 3.8 G/DL (3.2-5.2); BILIRUBIN,TOTAL 0.9 MG/DL (0.3-1.2); CREATININE FOR GFR 1.07 MG/DL (0.55-1.30); GLOMERULAR FILTRATION RATE 58.5 (>58); POTASSIUM SERUM 4.1 MMOL/L (3.5-5.1)
== END ==
LOC: M PLALAB 08:33
PROVIDERS: ATTEND Orthopaedic Surgery
DX: S83.512A Sprain of anterior cruciate ligament of left knee, initial encounter (principal); X58.XXXA Exposure to other specified factors, initial encounter; Y92.9 Unspecified place or not applicable

== ENCOUNTER → 2023-01-17 | Outpatient (CLI) | payer OTHER ==
[2023-01-17 14:21] LABS: CALCIUM LEVEL 8.5 MG/DL (8.5-10.1); CREATININE FOR GFR 1.05 MG/DL (0.55-1.30); GLOMERULAR FILTRATION RATE 59.8 (>58); POTASSIUM SERUM 3.9 MMOL/L (3.5-5.1)
[2023-01-17 14:22] LABS: FREE T4 0.66 NG/DL (0.89-1.76)
== END ==
LOC: M PLALAB 09:01
PROVIDERS: ATTEND Student in an Organized Health Care Education/Training Program
DX: I10 Essential (primary) hypertension (principal); E03.9 Hypothyroidism, unspecified

== ENCOUNTER 2023-03-17 14:06 | Emergency (ER) | payer OTHER ==
[~2023-03-17] VITALS: Ht 154.9 cm; Wt 105.9 kg
[2023-03-17] MEDS ORDERED: LEVO137T2 (14:21)
[2023-03-17] MEDS ORDERED: HYDR-3716 (14:21)
[2023-03-17] MEDS ORDERED: ASPI1TAB22 (14:21)
[2023-03-17] MEDS ORDERED: ACETAMINOPHEN 500 MG TAB PO ONE (15:25)
[2023-03-17] MEDS ORDERED: predniSONE 20 MG TAB PO ONE (16:00)
[2023-03-17] MEDS ORDERED: IPRATROPIUM 0.5MG/ALBUTEROL 2.5MG INH SOL UD 3ML (DUONEB) NEB ONE (16:00)
[2023-03-17] MEDS ORDERED: IBUPROFEN 800 MG TAB PO ONE (16:55)
[2023-03-17 16:56] VITALS: BP 158/90; TEMP 101; O2SAT 99
[2023-03-17] MEDS ORDERED: VENTAER INH (16:57)
[2023-03-17] MEDS ORDERED: PRED20TA PO (16:57)
== END 2023-03-17 17:16 | disposition home or self-care (01) ==
LOC: M ED 14:06
DX: J09.X2 Influenza due to identified novel influenza A virus with other respiratory manifestations (principal); I10 Essential (primary) hypertension; E78.5 Hyperlipidemia, unspecified; K21.9 Gastro-esophageal reflux disease without esophagitis; M54.50 Low back pain, unspecified; F41.9 Anxiety disorder, unspecified; F32.A Depression, unspecified; F17.200 Nicotine dependence, unspecified, uncomplicated; Z88.1 Allergy status to other antibiotic agents; Z88.8 Allergy status to other drugs, medicaments and biological substances; Z79.82 Long term (current) use of aspirin; Z79.52 Long term (current) use of systemic steroids; Z79.811 Long term (current) use of aromatase inhibitors; Z79.899 Other long term (current) drug therapy
CPT/HCPCS: 71046; 87486; 87581; 87633; 87798; 99283; J7512

== ENCOUNTER 2023-03-19 13:53 | Emergency (ER) | payer OTHER ==
[~2023-03-19] VITALS: Ht 154.9 cm; Wt 103.2 kg
[~2023-03-19 13:53] MED LIST changes: +ASPI1TAB22; +HYDR-3716; +LEVO137T2; +PRED20TA PO; +VENTAER INH
[2023-03-19 16:32] LABS: BASO % 0.2 % (0.0-1.0); EOS % 0.1 % (0.0-3.0); HEMATOCRIT 34.7 % (36.0-47.0); LYMPH # 0.8 10^3/uL (1.5-5.0); LYMPH % 10.4 % (24.0-44.0); MEAN CORPUSCULAR HEMOGLOBIN 27.4 pg (27.0-33.0); MEAN CORPUSCULAR HGB CONC 31.7 g/dl (32.0-36.5); MEAN CORPUSCULAR VOLUME 86.3 fl (80.0-96.0); MONO # 0.6 10^3/uL (0.0-0.8); MONO % 6.8 % (2.0-8.0); NEUTROPHILS # 6.6 10^3/uL (1.5-8.5); NEUTROPHILS % 81.3 % (36.0-66.0); PLATELET COUNT, AUTOMATED 226 10^3/uL (150-450); RED BLOOD COUNT 4.02 10^6/uL (4.00-5.40); WHITE BLOOD COUNT 8.1 10^3/uL (4.0-10.0)
[2023-03-19] MEDS ORDERED: LOSARTAN 50MG TABLET PO ONE (16:35)
[2023-03-19] MEDS ORDERED: ACETAMINOPHEN 500 MG TAB PO ONE (16:55)
[2023-03-19 17:04] LABS: CALCIUM LEVEL 8.4 MG/DL (8.5-10.1); CREATININE FOR GFR 1.1 MG/DL (0.55-1.30); GLOMERULAR FILTRATION RATE 56.4 (>58)
[2023-03-19 18:06] VITALS: BP 148/98; TEMP 100.3; O2SAT 92
== END 2023-03-19 18:25 | disposition home or self-care (01) ==
LOC: EDBD 13:53 → M ED 13:53
DX: J09.X2 Influenza due to identified novel influenza A virus with other respiratory manifestations (principal); I10 Essential (primary) hypertension; K21.9 Gastro-esophageal reflux disease without esophagitis; E03.9 Hypothyroidism, unspecified; F41.9 Anxiety disorder, unspecified; F32.A Depression, unspecified; Z88.1 Allergy status to other antibiotic agents; Z88.8 Allergy status to other drugs, medicaments and biological substances; Z79.02 Long term (current) use of antithrombotics/antiplatelets; Z79.52 Long term (current) use of systemic steroids; Z79.811 Long term (current) use of aromatase inhibitors; Z79.899 Other long term (current) drug therapy

== ENCOUNTER → 2023-04-29 | Outpatient (CLI) | payer OTHER | LOC: M SLEEP 20:00 | PROVIDERS: ATTEND Nurse Practitioner Family | DX: G47.33 Obstructive sleep apnea (adult) (pediatric) (principal) ==

== ENCOUNTER 2023-07-08 07:51 | Emergency (ER) | payer OTHER ==
[~2023-07-08] VITALS: Ht 154.9 cm; Wt 105.0 kg
[2023-07-08] MEDS ORDERED: AZIT-12 PO (09:10)
[2023-07-08 09:35] VITALS: BP 123/87; TEMP 98.2; O2SAT 98
== END 2023-07-08 09:38 | disposition home or self-care (01) ==
LOC: M ED 07:51
DX: J02.8 Acute pharyngitis due to other specified organisms (principal); I10 Essential (primary) hypertension; E78.5 Hyperlipidemia, unspecified; J44.9 Chronic obstructive pulmonary disease, unspecified; F41.9 Anxiety disorder, unspecified; F32.A Depression, unspecified; F17.200 Nicotine dependence, unspecified, uncomplicated; Z88.1 Allergy status to other antibiotic agents; Z88.8 Allergy status to other drugs, medicaments and biological substances; Z79.52 Long term (current) use of systemic steroids; Z79.2 Long term (current) use of antibiotics; Z79.02 Long term (current) use of antithrombotics/antiplatelets; Z79.811 Long term (current) use of aromatase inhibitors; Z79.899 Other long term (current) drug therapy

== ENCOUNTER → 2023-12-01 | Outpatient (REF) | payer OTHER ==
[~2023-12-01] MED LIST changes: +AZIT-12 PO; +GABA-1172 PO; -GABA-282 PO; +OMEG-28 PO; -OMEG1CAP85 PO; +ONDA-282 PO; -ONDA4TAB6 PO
== END ==
LOC: M SFHCPLAZ 21:01
PROVIDERS: ATTEND Family Medicine
DX: E78.5 Hyperlipidemia, unspecified (principal); E03.9 Hypothyroidism, unspecified

== ENCOUNTER → 2024-06-20 | Outpatient (CLI) | payer OTHER ==
[2024-06-20 10:14] LABS: BASO # 0.1 10^3/uL (0.0-0.2); BASO % 1.1 % (0.0-1.0); EOS # 0.4 10^3/uL (0.0-0.5); EOS % 4.1 % (0.0-3.0); HEMATOCRIT 40.8 % (36.0-47.0); HEMOGLOBIN 12.7 g/dl (12.0-15.5); LYMPH # 2.1 10^3/uL (1.5-5.0); LYMPH % 24.5 % (24.0-44.0); MEAN CORPUSCULAR HGB CONC 31.1 g/dl (32.0-36.5); MEAN CORPUSCULAR VOLUME 86.8 fl (80.0-96.0); MONO # 0.4 10^3/uL (0.0-0.8); MONO % 4.3 % (2.0-8.0); NEUTROPHILS # 5.6 10^3/uL (1.5-8.5); NEUTROPHILS % 65.4 % (36.0-66.0); WHITE BLOOD COUNT 8.5 10^3/uL (4.0-10.0)
[2024-06-20 10:37] LABS: PLATELET COUNT, AUTOMATED 188 10^3/uL (150-450)
[2024-06-20 10:40] LABS: ALBUMIN 3.7 G/DL (3.2-5.2); ALKALINE PHOSPHATASE 67 U/L (35-104); ALT/SGPT 37 U/L (7.0-40); AST/SGOT 33 U/L (<34); BILIRUBIN,TOTAL 0.7 MG/DL (0.3-1.2); BLOOD UREA NITROGEN 12 MG/DL (9-23); CALCIUM LEVEL 8.6 MG/DL (8.5-10.1); CARBON DIOXIDE LEVEL 26 MMOL/L (20-31); CHLORIDE LEVEL 102 MMOL/L (98-107); CHOLESTEROL LEVEL 292 MG/DL (<200); CHOLESTEROL RISK RATIO 9.63 (<5); CREATININE FOR GFR 1.22 MG/DL (0.55-1.30); GLOMERULAR FILTRATION RATE 54.4 (>58); GLUCOSE, FASTING 121 MG/DL (60-100); HDL CHOLESTEROL 30.3 MG/DL (>40); NON-HDL-C 261.7 MG/DL; POTASSIUM SERUM 3.3 MMOL/L (3.5-5.1); SODIUM LEVEL 139 MMOL/L (136-145); TRIGLYCERIDES LEVEL 546 MG/DL (<150)
[2024-06-20 10:41] LABS: FREE T4 0.16 NG/DL (0.89-1.76); THYROID STIMULATING HORMONE 40.811 uIU/ML (0.55-4.78)
== END ==
LOC: M LAB 09:21
PROVIDERS: ATTEND Student in an Organized Health Care Education/Training Program
DX: I10 Essential (primary) hypertension (principal); E78.5 Hyperlipidemia, unspecified; E03.9 Hypothyroidism, unspecified; R19.7 Diarrhea, unspecified